=== PATIENT | male | born 1980 | race Caucasian/White ===

== ENCOUNTER 2020-12-17 14:14 | Outpatient (REF) | payer BC, MEDICAID, SELFPAY ==
[2020-12-17 21:21] LABS: Calculated LDL 92 mg/dL (<100); Cholesterol 179 mg/dL (<200); Glucose 81 mg/dL (74-106); HDL Cholesterol 75 mg/dL (40-60); Triglyceride 61 mg/dL (<150)
== END 2020-12-17 14:15 | disposition home or self-care (01) ==
LOC: NCHCN 14:14
PROVIDERS: PCP Registered Nurse; Visit Provider Registered Nurse
DX: E66.9 Obesity, unspecified (principal); Z13.220 Encounter for screening for lipoid disorders
CPT/HCPCS: 80061; 82947

== ENCOUNTER 2022-11-16 17:18 | Outpatient (REF) | payer BC, MEDICAID, SELFPAY ==
[2022-11-16 14:23] LABS: ALT 36 U/L (16-63); AST 23 U/L (15-37); Alkaline Phosphatase 118 U/L (46-116); Anion Gap 10.4 mmol/L (3-11); BUN 17 mg/dL (7-18); Bilirubin, Total 1.3 mg/dL (0.2-1.0); CO2 25.6 mmol/L (21.0-32.0); CREATININE 0.9 mg/dL (0.70-1.30); Calcium 9.1 mg/dL (8.5-10.1); Chloride 104 mmol/L (98-107); Estimated GFR 108.01 (mL/min/1.73m2); Glucose 89 mg/dL (74-106); Potassium 4.2 mmol/L (3.5-5.1); Sodium 140 mmol/L (136-145); Total Protein 7.7 g/dL (6.4-8.2)
== END 2022-11-16 17:19 | disposition home or self-care (01) ==
LOC: NCHCN 17:18
PROVIDERS: PCP Registered Nurse; Visit Provider Registered Nurse
DX: Z00.00 Encounter for general adult medical examination without abnormal findings (principal); E66.8 Other obesity; Z68.33 Body mass index [BMI] 33.0-33.9, adult
CPT/HCPCS: 80053

== ENCOUNTER 2023-02-09 09:18 | Outpatient (REF) | payer BC, MEDICAID, SELFPAY ==
[2023-02-09 18:21] LABS: ALT 32 U/L (16-63); AST 25 U/L (15-37); Alkaline Phosphatase 107 U/L (46-116); Bilirubin, Direct 0.2 mg/dL (0.0-0.2); Total Protein 7.3 g/dL (6.4-8.2)
== END 2023-02-09 09:19 | disposition home or self-care (01) ==
LOC: NCHCN 09:18
PROVIDERS: PCP Registered Nurse; Visit Provider Registered Nurse
DX: R74.8 Abnormal levels of other serum enzymes (principal)
CPT/HCPCS: 80076